=== PATIENT | female | born 1960 | race African-American/Black ===

== ENCOUNTER 2017-06-15 08:21 | Inpatient (IN) ==
[2017-06-15] MEDS ORDERED: ONDANSETRON 4 MG/2 ML VIAL ONE (09:35)
[2017-06-15] MEDS ORDERED: PROMETHAZINE 25 MG/1 ML VIAL ONE (09:37)
[2017-06-15] MEDS ORDERED: MECLIZINE 25 MG TABLET ONE (09:37)
[2017-06-15] MEDS ORDERED: PROMETHAZINE 25 MG/1 ML VIAL IM STA (09:38)
[2017-06-15] MEDS ORDERED: MECLIZINE 25 MG TABLET PO STA (09:38)
[2017-06-15] MEDS ORDERED: hydrALAZINE 20 MG/1 ML VIAL IV STA (09:57)
[2017-06-15] MEDS ORDERED: hydrALAZINE 20 MG/1 ML VIAL ONE (10:13)
[2017-06-15 10:15] LABS: Basophils % 0.4 % (0.0-0.8); Eosinophils # 0.1 10*3/uL (0.0-0.87); Eosinophils % 1.3 % (0.00-10.9); Hematocrit 37.2 VOL% (35.7-47.0); Hemoglobin 12.7 GM/DL (12.0-16.0); Immature Granulocytes % 0.2 %; Immature Granulocytes Absolute 0.01 #; Lymphocytes # 2.5 10*3/uL (1.4-4.0); Lymphocytes % 55.8 % (21.3-54.2); Mean Corpuscular HGB Conc 34.1 GM/DL (32-36); Mean Corpuscular Hemoglobin 28 PG (27-34); Mean Corpuscular Volume 81.9 FL (87-102); Mean Platelet Volume 11.9 FL (9.6-12.0); Monocytes # 0.5 10*3/uL (0.11-0.8); Monocytes % 10.3 % (1.7-12.7); Neutrophils # 1.4 10*3/uL (1.4-7.4); Platelet Count 203 T/CUMM (130-400); Red Blood Count 4.54 MC/CUMM (3.8-5.5); Red Cell Distribution Width 14.4 % (9.3-17.3); White Blood Count 4.5 T/CUMM (4-12)
[2017-06-15 10:20] LABS: INR 0.9; PT Patient Result 9.9 SECS
[2017-06-15 10:30] LABS: Alanine Aminotransferase 20 U/L (13-56); Albumin 3.5 G/DL (3.4-5.0); Alkaline Phosphatase 70 U/L (45-117); Aspartate Amino Transferase 16 U/L (0-37); Blood Urea Nitrogen 9 MG/DL (7-18); Calcium 8.8 MG/DL (8.5-10.1); Glucose 117 MG/DL (74-106); Osmolality,Calculated 285.8 MOS/KG (273-304); Potassium 3.2 MMOL/L (3.5-5.1); Sodium 144 MMOL/L (136-145); Total Protein 6.9 G/DL (6.4-8.3); Troponin I Only < 0.015 NG/ML (0.00-0.045)
[2017-06-15 11:10] LABS: Apearance,Urine CLEAR (Clear); Bilirubin,Urine Negative (Negative); Blood, Urine Negative (Negative); Glucose,Urine (UA) Negative (Negative); Ketones,Urine Negative (Negative); Mucus,Urine Occasional /LPF (Occasional); Nitrite,Urine Negative (Negative); Protein,Urine Negative; RBC,Urine 1 /HPF (0-4); Squamous Epithelial Cell,Urine Occasional /HPF (0-10); Urine Color Straw (Yellow); Urine Specific Gravity 1.009 (1.001-1.035); Urine Urobilinogen < 2.0 EU/DL (0.2-1.0); WBC,Urine 2 /HPF (0-6)
[2017-06-15 11:22] LABS: Barbiturates Screen,Urine Negative (Negative); Benzodiazepines Screen,Urine Negative (Negative); Cannabinoid Screen,Urine Negative (Negative); Opiate Screen,Urine Negative (Negative); Phencyclidine Screen,Urine Negative (Negative)
[2017-06-15 12:00] LABS: Eosinophils 2 % (0-10); Hypochromasia 1+; Lymphocytes 50 % (20-55); Segmented Neutrophils 40 % (50-85); Total Cells Counted 100
[2017-06-15 12:01] LABS: Atypical Lymphocytes Few; Microcytosis 1+
[2017-06-15] MEDS ORDERED: diphenhydrAMINE CAP 25 MG CAPSULE PO PRN (12:14)
[2017-06-15] MEDS ORDERED: ACETAMINOPHEN 325 MG TABLET PO PRN (12:14)
[2017-06-15] MEDS ORDERED: PROMETHAZINE 25 MG/1 ML VIAL IM PRN (12:14)
[2017-06-15] MEDS ORDERED: DOCUSATE SODIUM 100 MG CAPSULE PO PRN (12:14)
[2017-06-15] MEDS ORDERED: guaiFENesin/DM ER 600-30 MG TABLET PO PRN (12:14)
[2017-06-15] MEDS ORDERED: ONDANSETRON 4 MG/2 ML VIAL IV PRN (12:14)
[2017-06-15] MEDS ORDERED: MORPHINE 2 MG/1 ML SYRINGE IV PRN (12:14)
[2017-06-15] MEDS ORDERED: DEXAMETHASONE 4 MG/1 ML VIAL IV STA (13:16)
[2017-06-15] MEDS ORDERED: ACYCLOVIR INJ 1,000 MG in SODIUM CHLORIDE 0.9% 250 ML IV STA (13:16)
[2017-06-15] MEDS ORDERED: LORazepam 2 MG/1 ML VIAL IV STA (13:16)
[2017-06-15] MEDS ORDERED: LORazepam 2 MG/1 ML VIAL ONE (14:30)
[2017-06-15] MEDS ORDERED: DEXAMETHASONE 10 MG/1 ML VIAL ONE (14:30)
[2017-06-15] MEDS ORDERED: PANTOPRAZOLE 40 MG VIAL IV ONE (14:30)
[2017-06-15] MEDS: PANTOPRAZOLE 40 MG TABLET PO SCH (14:49)
[2017-06-15] MEDS ORDERED: PANTOPRAZOLE 40 MG VIAL IV STA (14:50)
[2017-06-15] MEDS: SODIUM CHLORIDE 0.9% 1,000 ML IV SCH (16:37)
[2017-06-15] MEDS: DIAZEPAM 10 MG/2 ML SYRINGE IV SCH (19:43)
[2017-06-15] MEDS: LISINOPRIL/HCTZ 20-25 MG TABLET PO SCH (19:43)
[2017-06-15] MEDS: MECLIZINE 25 MG TABLET PO SCH (19:44)
[2017-06-15] MEDS: ENOXAPARIN 40 MG/0.4 ML SYRINGE SUBCUT SCH (21:19)
[2017-06-16] MEDS: SODIUM CHLORIDE 0.9% 1,000 ML IV SCH ×3 (05:14→14:28)
[2017-06-16 07:07] LABS: Basophils % 0.2 % (0.0-0.8); Hematocrit 35.9 VOL% (35.7-47.0); Hemoglobin 12.1 GM/DL (12.0-16.0); Immature Granulocytes % 0.2 %; Immature Granulocytes Absolute 0.01 #; Lymphocytes % 15.9 % (21.3-54.2); Mean Corpuscular HGB Conc 33.7 GM/DL (32-36); Mean Corpuscular Hemoglobin 28 PG (27-34); Mean Corpuscular Volume 81.8 FL (87-102); Mean Platelet Volume 10.7 FL (9.6-12.0); Monocytes # 0.4 10*3/uL (0.11-0.8); Monocytes % 6.8 % (1.7-12.7); Neutrophils # 4.8 10*3/uL (1.4-7.4); Neutrophils % 76.9 % (38.7-73.9); Platelet Count 185 T/CUMM (130-400); Red Blood Count 4.39 MC/CUMM (3.8-5.5); Red Cell Distribution Width 14.6 % (9.3-17.3); White Blood Count 6.3 T/CUMM (4-12)
[2017-06-16 07:43] LABS: Calcium 8.9 MG/DL (8.5-10.1); Magnesium 1.9 MG/DL (1.8-2.4); Osmolality,Calculated 287.7 MOS/KG (273-304); Potassium 3.4 MMOL/L (3.5-5.1)
[2017-06-16] MEDS: PANTOPRAZOLE 40 MG TABLET PO SCH (09:36)
[2017-06-16] MEDS: LISINOPRIL/HCTZ 20-25 MG TABLET PO SCH (09:36)
[2017-06-16] MEDS: MECLIZINE 25 MG TABLET PO SCH ×2 (09:36→20:38)
[2017-06-16] MEDS: DIAZEPAM 10 MG/2 ML SYRINGE IV SCH ×3 (09:38→20:41)
[2017-06-16] MEDS: ACYCLOVIR INJ 500 MG in SODIUM CHLORIDE 0.9% 100 ML IV SCH ×2 (14:28→22:39)
[2017-06-16] MEDS: POTASSIUM CHLORIDE 20 MEQ TABLET PO PRN ×2 (20:38→22:38)
[2017-06-16] MEDS: ENOXAPARIN 40 MG/0.4 ML SYRINGE SUBCUT SCH (20:39)
[2017-06-17] MEDS: POTASSIUM CHLORIDE 20 MEQ TABLET PO PRN (00:57)
[2017-06-17] MEDS: SODIUM CHLORIDE 0.9% 1,000 ML IV SCH ×2 (00:58→09:35)
[2017-06-17] MEDS: ACYCLOVIR INJ 500 MG in SODIUM CHLORIDE 0.9% 100 ML IV SCH (06:08)
[2017-06-17 07:01] LABS: Basophils % 0.2 % (0.0-0.8); Eosinophils % 0.6 % (0.00-10.9); Hematocrit 36.4 VOL% (35.7-47.0); Hemoglobin 12.4 GM/DL (12.0-16.0); Immature Granulocytes % 0.2 %; Immature Granulocytes Absolute 0.01 #; Lymphocytes # 2.5 10*3/uL (1.4-4.0); Lymphocytes % 47.1 % (21.3-54.2); Mean Corpuscular HGB Conc 34.1 GM/DL (32-36); Mean Corpuscular Hemoglobin 28 PG (27-34); Mean Corpuscular Volume 81.4 FL (87-102); Mean Platelet Volume 11.4 FL (9.6-12.0); Monocytes # 0.4 10*3/uL (0.11-0.8); Monocytes % 7.6 % (1.7-12.7); Neutrophils # 2.3 10*3/uL (1.4-7.4); Neutrophils % 44.3 % (38.7-73.9); Platelet Count 197 T/CUMM (130-400); Red Blood Count 4.47 MC/CUMM (3.8-5.5); Red Cell Distribution Width 14.7 % (9.3-17.3); White Blood Count 5.3 T/CUMM (4-12)
[2017-06-17 07:26] LABS: Calcium 8.2 MG/DL (8.5-10.1); Osmolality,Calculated 284.7 MOS/KG (273-304)
[2017-06-17] MEDS: MECLIZINE 25 MG TABLET PO SCH ×3 (08:46→20:58)
[2017-06-17] MEDS: DIAZEPAM 5 MG TABLET PO SCH ×3 (08:47→20:58)
[2017-06-17] MEDS: ACYCLOVIR 800 MG TABLET PO SCH ×3 (08:47→20:57)
[2017-06-17] MEDS: LISINOPRIL/HCTZ 20-25 MG TABLET PO SCH (08:47)
[2017-06-17] MEDS: PANTOPRAZOLE 40 MG TABLET PO SCH (08:48)
[2017-06-17] MEDS: VANCOMYCIN INJ 1,750 MG in SODIUM CHLORIDE 0.9% 500 ML IV SCH (12:53)
[2017-06-17] MEDS: ENOXAPARIN 40 MG/0.4 ML SYRINGE SUBCUT SCH (20:59)
[2017-06-18] MEDS: VANCOMYCIN INJ 1,750 MG in SODIUM CHLORIDE 0.9% 500 ML IV SCH ×2 (00:43→13:36)
[2017-06-18] MEDS: LISINOPRIL/HCTZ 20-25 MG TABLET PO SCH (08:58)
[2017-06-18] MEDS: ACYCLOVIR 800 MG TABLET PO SCH ×3 (08:58→21:51)
[2017-06-18] MEDS: PANTOPRAZOLE 40 MG TABLET PO SCH (08:59)
[2017-06-18] MEDS: MECLIZINE 25 MG TABLET PO SCH ×3 (08:59→21:51)
[2017-06-18] MEDS: DIAZEPAM 5 MG TABLET PO SCH ×3 (08:59→21:51)
[2017-06-18 12:00] LABS: Apearance,Urine CLEAR (Clear); Bilirubin,Urine Negative (Negative); Blood, Urine Small mg/dL (Negative); Glucose,Urine (UA) Negative (Negative); Ketones,Urine Negative (Negative); Nitrite,Urine Negative (Negative); Protein,Urine Negative; RBC,Urine 2 /HPF (0-4); Squamous Epithelial Cell,Urine Occasional /HPF (0-10); Urine Color Straw (Yellow); Urine Specific Gravity 1.004 (1.001-1.035); Urine Urobilinogen < 2.0 EU/DL (0.2-1.0); WBC,Urine 2 /HPF (0-6)
[2017-06-18] MEDS: POTASSIUM CHLORIDE INJ 10 MEQ in SODIUM CHLORIDE 0.45% 1,000 ML IV SCH (13:32)
[2017-06-18] MEDS: ENOXAPARIN 40 MG/0.4 ML SYRINGE SUBCUT SCH (21:51)
[2017-06-19] MEDS: VANCOMYCIN INJ 1,750 MG in SODIUM CHLORIDE 0.9% 500 ML IV SCH (00:23)
[2017-06-19] MEDS: POTASSIUM CHLORIDE INJ 10 MEQ in SODIUM CHLORIDE 0.45% 1,000 ML IV SCH ×2 (04:37→17:56)
[2017-06-19 05:48] LABS: Basophils % 0.6 % (0.0-0.8); Eosinophils # 0.1 10*3/uL (0.0-0.87); Eosinophils % 2.9 % (0.00-10.9); Hematocrit 35.2 VOL% (35.7-47.0); Immature Granulocytes % 0.4 %; Immature Granulocytes Absolute 0.02 #; Lymphocytes # 2.1 10*3/uL (1.4-4.0); Lymphocytes % 43.4 % (21.3-54.2); Mean Corpuscular HGB Conc 34.1 GM/DL (32-36); Mean Corpuscular Hemoglobin 28 PG (27-34); Mean Corpuscular Volume 81.3 FL (87-102); Mean Platelet Volume 11.8 FL (9.6-12.0); Monocytes # 0.4 10*3/uL (0.11-0.8); Monocytes % 8.3 % (1.7-12.7); Neutrophils # 2.2 10*3/uL (1.4-7.4); Neutrophils % 44.4 % (38.7-73.9); Platelet Count 186 T/CUMM (130-400); Red Blood Count 4.33 MC/CUMM (3.8-5.5); Red Cell Distribution Width 14.3 % (9.3-17.3); White Blood Count 4.8 T/CUMM (4-12)
[2017-06-19] MEDS: ACYCLOVIR 800 MG TABLET PO SCH ×3 (09:45→20:53)
[2017-06-19] MEDS: PANTOPRAZOLE 40 MG TABLET PO SCH (09:45)
[2017-06-19] MEDS: LISINOPRIL/HCTZ 20-25 MG TABLET PO SCH (09:45)
[2017-06-19] MEDS: MECLIZINE 25 MG TABLET PO SCH ×3 (09:45→20:53)
[2017-06-19] MEDS: DIAZEPAM 5 MG TABLET PO SCH ×3 (09:46→20:53)
[2017-06-19] MEDS: ENOXAPARIN 40 MG/0.4 ML SYRINGE SUBCUT SCH (20:53)
[2017-06-20] MEDS ORDERED: LORazepam 2 MG/1 ML VIAL IV ONE (01:16)
[2017-06-20] MEDS: POTASSIUM CHLORIDE INJ 10 MEQ in SODIUM CHLORIDE 0.45% 1,000 ML IV SCH ×2 (03:18→16:48)
[2017-06-20] MEDS ORDERED: ALPRAZolam 0.5 MG TABLET PO ONE (06:00)
[2017-06-20 08:07] LABS: Calcium 8.8 MG/DL (8.5-10.1); Osmolality,Calculated 284.8 MOS/KG (273-304); Potassium 3.7 MMOL/L (3.5-5.1)
[2017-06-20] MEDS: ACYCLOVIR 800 MG TABLET PO SCH (09:22)
[2017-06-20] MEDS: PANTOPRAZOLE 40 MG TABLET PO SCH (09:22)
[2017-06-20] MEDS: DIAZEPAM 5 MG TABLET PO SCH ×2 (09:22→18:11)
[2017-06-20] MEDS: LISINOPRIL/HCTZ 20-25 MG TABLET PO SCH (09:22)
[2017-06-20] MEDS: MECLIZINE 25 MG TABLET PO SCH ×2 (09:22→18:11)
[2017-06-20] MEDS ORDERED: VANCOMYCIN INJ 1,750 MG in SODIUM CHLORIDE 0.9% 500 ML IV SCH (10:00)
[2017-06-20 13:13] VITALS: BP 107/80
[2017-06-20] MEDS ORDERED: cefTRIAXone 2,000 MG in SYRINGE 1 EACH IV SCH ×2 (14:00→14:30)
== END 2017-06-20 18:42 | disposition home or self-care (01) | DRG 155 ==
LOC: EDUNIT# → EDBD → N.ED 08:21 → N.EDINP 11:17 → SUATTDRO 11:17 → N.EDINP 17:43 → N.4E 17:58
PROVIDERS: ADMIT Internal Medicine; ATTEND Internal Medicine